=== PATIENT | male | born 1975 ===

== ENCOUNTER 2018-07-18 13:28 | Emergency (ER) | payer OTHER ==
[2018-07-18 13:28] VITALS: BMI 31.5
[2018-07-18 15:39] LABS: SQUAMOUS EPITHIAL < 1 /hpf (0-5); URINE BILIRUBIN NEGATIVE (NEGATIVE); URINE BLOOD NEGATIVE (NEGATIVE); URINE CLARITY Clear (Clear); URINE COLOR Yellow (YELLOW); URINE GLUCOSE (UA) 2+ mg/dL (Normal); URINE LEUKOCYTE ESTERASE NEG Leu/uL (Negative); URINE PROTEIN NEGATIVE (NEGATIVE); URINE UROBILINOGEN NORMAL mg/dL (0.2-1.0)
--- NOTE | 2018-07-18 15:51 | C.PDOC ---
History Of Present Illness 43 year old male presents to the ED for evaluation of difficulty with urinating that has been intermittent for several months. Patient reports he was having difficulty urinating last night, and was unable to urinate during the entire night. Patient reports suprapubic fullness. He denies fever, chills, vomiting. Time Seen by Provider: 07/18/18 14:10 Chief Complaint (Nursing): Male Genitourinary History Per: Patient History/Exam Limitations: no limitations Onset/Duration Of Symptoms: Intermittent Episodes, Other (several months ) Current Symptoms Are (Timing): Still Present Quality Of Discomfort: Other (fullness ) Associated Symptoms: Urinary Symptoms (urinary retention ). denies: Fever, Chills, Vomiting Additional History Per: Patient Past Medical History Reviewed: Historical Data, Nursing Documentation, Vital Signs Vital Signs: Last Vital Signs Temp 98.7 F 07/18/18 14:18 Pulse 94 H 07/18/18 14:18 Resp 18 07/18/18 14:18 BP 133/91 H 07/18/18 14:18 Pulse Ox 99 07/18/18 14:18 - Medical History PMH: Back Problems, Diabetes, HTN, Hypercholesterolemia Denies: Chronic Kidney Disease Surgical History: No Surg Hx Family History: States: Unknown Family Hx - Social History Hx Alcohol Use: Yes Hx Substance Use: No - Immunization History Hx Tetanus Toxoid Vaccination: Yes Hx Influenza Vaccination: Yes Hx Pneumococcal Vaccination: Yes Review Of Systems Constitutional: Negative for: Fever, Chills Gastrointestinal: Positive for: Other (suprapubic fullness ). Negative for: Vomiting Genitourinary: Positive for: Other (urinary retention ) Physical Exam - Physical Exam Appears: Non-toxic, No Acute Distress Skin: Normal Color, Warm, Dry, No Rash Head: Atraumatic, Normacephalic Eye(s): bilateral: Normal Inspection, PERRL, EOMI Ear(s): Bilateral: Normal Oral Mucosa: Moist Throat: No Erythema, No Exudate Neck: Normal ROM, Supple Chest: Symmetrical, No Deformity, No Tenderness Cardiovascular: Rhythm Regular, No Murmur Respiratory: Normal Breath Sounds, No Rales, No Rhonchi, No Wheezing Gastrointestinal/Abdominal: Soft, No Tenderness, No Guarding, No Rebound Extremity: Normal ROM, Capillary Refill (less than 2 seconds ), No Swelling Neurological/Psych: Oriented x3, Normal Speech, Normal Cognition Gait: Steady ED Course And Treatment - Laboratory Results Lab Results: Urine Color Yellow (YELLOW) 07/18/18 15:21 Urine Clarity Clear (Clear) 07/18/18 15:21 Urine pH 6.0 (5.0-8.0) 07/18/18 15:21 Ur Specific [place] 1.018 (1.003-1.030) 07/18/18 15:21 Urine Protein Negative mg/dL (NEGATIVE) 07/18/18 15:21 Urine Glucose (UA) 2+ mg/dL (Normal) H 07/18/18 15:21 Urine Ketones Negative mg/dL (NEGATIVE) 07/18/18 15:21 Urine Blood Negative (NEGATIVE) 07/18/18 15:21 Urine Nitrate Negative (NEGATIVE) 07/18/18 15:21 Urine Bilirubin Negative (NEGATIVE) 07/18/18 15:21 Urine Urobilinogen Normal mg/dL (0.2-1.0) 07/18/18 15:21 Ur Leukocyte Esterase Neg [place]/uL (Negative) 07/18/18 15:21 Urine WBC (Auto) < 1 /hpf (0-5) 07/18/18 15:21 Urine RBC (Auto) < 1 /hpf (0-3) 07/18/18 15:21 Ur Squamous Epith Cells < 1 /hpf (0-5) 07/18/18 15:21 O2 Sat by Pulse Oximetry: 99 (on RA) Pulse Ox Interpretation: Normal Medical Decision Making Medical Decision Making: Progress: Upon ED arrival, patient was able to urinate in the ED bathroom, reporting immediate relief. No rosado was placed. Urinalysis ordered and reviewed. Results are within normal limits. Disposition - Disposition Referrals: Kody Bolden MD [Staff Provider] - Disposition: HOME/ ROUTINE Disposition Time: 15:48 Condition: GOOD Additional Instructions: Follow up with the Urologist within 1-2 days. Return if worsened. Prescriptions: Tamsulosin [Flomax] 0.4 mg PO DAILY #10 cap Instructions: Urinary Retention (DC) Forms: [employer] (Polish) - Clinical Impression Clinical Impression: Urinary retention - PA / RUBBER INSULATOR / Resident Statement MD/DO has reviewed & agrees with the documentation as recorded. - Scribe Statement The provider has reviewed the documentation as recorded by the Scribe (Julita Hernandez) All medical record entries made by the Scribe were at my direction and personally dictated by me. I have reviewed the chart and agree that the record accurately reflects my personal performance of the history, physical exam, medical decision making, and the department course for this patient. I have also personally directed, reviewed, and agree with the discharge instructions and disposition.
[2018-07-18 16:11] VITALS: BP 133/90; PULSE 95; RESP 20; TEMP 98.3
[2018-07-20 16:40] VITALS: O2SAT 99
== END 2018-07-18 16:06 | disposition home or self-care (01) ==
LOC: C.ER 13:28
DX: R33.9 Retention of urine, unspecified (principal)